=== PATIENT | female | born 1965 | race Two or more races ===

== ENCOUNTER 2021-07-02 06:10 | Emergency (ER) | payer MEDICAID ==
[2021-07-02 07:16] LABS: Hematocrit 38.1 % (36.0-46.0); Hemoglobin 13.3 g/dL (12.2-16.2); Mean Corpuscular Hemoglobin 30.9 pg (28.0-32.0); Mean Corpuscular Volume 88.4 fL (80.0-100.0); Red Blood Cells 4.31 10^6/uL (4.0-5.20); Red Cell Distribution Width 12.1 % (11.8-14.3); White Blood Cell 16.2 10^3/uL (4.4-10.8)
[2021-07-02 07:17] LABS: Urine Bacteria FEW /hpf (None Seen); Urine Blood TRACE /uL (Negative); Urine Specific Gravity 1.015 (1.001-1.035); Urine WBC 9 /hpf (0 - 5)
[2021-07-02 07:20] LABS: Basophils % (manual) 0 (0.0-2.0); Blast Cells 0; Eosinophils % (manual) 0 (0-7); Metamyelocytes % 0; Myelocytes % 0; Promyelocytes % 0; Reactive Lymphocytes 0
[2021-07-02] MEDS ORDERED: ACETAMINOPHEN 500 MG TAB PO ONE (07:30)
[2021-07-02 07:33] LABS: Potassium 3.6 mmol/L (3.5-5.1)
[2021-07-02 07:41] LABS: Albumin 3.2 g/dL (3.4-5.0); Bilirubin, Total 0.7 mg/dL (0.2-1.0); Calcium 8.8 mg/dL (8.5-10.1); Total Protein 7.8 g/dL (6.4-8.2)
[2021-07-02] MEDS ORDERED: InsuLIN REG 1unit/0.01ml Soln (100units/ml) IV ONE (08:00)
[2021-07-02] MEDS ORDERED: SODIUM CHLORIDE 0.9% 1,000 ML IV ONE ×2 (08:00)
[2021-07-02] MEDS ORDERED: cefTRIAXone 1GM/50ML D5W 50 ML IV ONE (08:00)
[2021-07-02 08:18] LABS: Band Neutrophils % (manual) 5; Lymphocytes % (manual) 3 (10.0-50.0); Monocytes % (manual) 2 (0-12)
[2021-07-02 10:50] VITALS: BP 110/58
== END 2021-07-02 11:15 | disposition home or self-care (01) ==
LOC: EDBD → ER 06:10
DX: N12 Tubulo-interstitial nephritis, not specified as acute or chronic (principal); E46 Unspecified protein-calorie malnutrition; E11.65 Type 2 diabetes mellitus with hyperglycemia; Z90.89 Acquired absence of other organs; Z20.822 Contact with and (suspected) exposure to COVID-19
CPT/HCPCS: 36415; 71045; 80053; 81001; 82150; 82728; 83690; 84702; 85007; 85027; 86141; 87426

== ENCOUNTER 2021-07-05 17:11 | Inpatient (IN) | payer MEDICAID ==
[~2021-07-05] VITALS: Ht 154.9 cm; Wt 63.6 kg
[2021-07-05] MEDS ORDERED: ONDANSETRON ODT 4 MG TAB PO ONE (18:30)
[2021-07-05 18:55] LABS: Basophils # (auto) 0.1 10 ^3/uL (0-0.2); Basophils % (auto) 0.6 % (0.0-2.0); Eosinophils # (auto) 0 10 ^3/uL (0-0.8); Eosinophils % (auto) 0.1 % (0.0-7.0); Hematocrit 42.4 % (36.0-46.0); Hemoglobin 14.5 g/dL (12.2-16.2); Lymphocytes # (auto) 1.5 10 ^3/uL (0.4-5.4); Lymphocytes % (auto) 9.3 % (10.0-50.0); Mean Corpuscular Hemoglobin 30.2 pg (28.0-32.0); Mean Corpuscular Hgb Conc. 34.2 g/dL (32.0-36.0); Mean Corpuscular Volume 88.2 fL (80.0-100.0); Monocytes # (auto) 1.1 10 ^3/uL (0-1.3); Monocytes % (auto) 6.9 % (0.0-12.0); Neutrophils # (auto) 13.1 10 ^3/uL (1.6-8.6); Neutrophils % (auto) 83.1 % (37.0-80.0); Red Blood Cells 4.81 10^6/uL (4.0-5.20); Red Cell Distribution Width 12.4 % (11.8-14.3); White Blood Cell 15.7 10^3/uL (4.4-10.8)
[2021-07-05 19:12] LABS: Albumin 2.6 g/dL (3.4-5.0); BUN/Creatinine Ratio 32.9; Calcium 8.6 mg/dL (8.5-10.1); Potassium 3.4 mmol/L (3.5-5.1)
[2021-07-05 19:14] LABS: Bilirubin, Total 0.7 mg/dL (0.2-1.0); Total Protein 8.2 g/dL (6.4-8.2)
[2021-07-06] MEDS ORDERED: ALBUMIN 25% 50 ML IV ONE (03:30)
[2021-07-06] MEDS ORDERED: NITROGLYCERIN 0.4 MG SL TAB SL PRN (03:30)
[2021-07-06] MEDS ORDERED: ACETAMINOPHEN 325 MG TAB PO PRN (03:30)
[2021-07-06] MEDS ORDERED: HYDROcodone-ACET 5/325MG TAB PO PRN (03:30)
[2021-07-06] MEDS ORDERED: MORPHINE SULFATE INJECTION 2 MG/ML SYRG IV PRN (03:30)
[2021-07-06] MEDS ORDERED: POTASSIUM CHL 20 Meq TABLET PO ONE (03:30)
[2021-07-06] MEDS ORDERED: DEXTROSE (50%) 50ML SYRG IV PRN (03:30)
[2021-07-06 04:06] LABS: Urine Bacteria FEW /hpf (None Seen); Urine Blood 2+ /uL (Negative); Urine Hyaline Cast FEW /lpf (0 - 2); Urine Mucus FEW (None Seen); Urine Specific Gravity 1.027 (1.001-1.035); Urine WBC 4 /hpf (0 - 5)
[2021-07-06] MEDS: SODIUM CHLORIDE 0.9% 1,000 ML IV SCH ×2 (06:00→21:07)
[2021-07-06] MEDS: ACCU-CHEK COMFORT CURVE STRIP VI SCH ×4 (07:55→21:06)
[2021-07-06] MEDS: InsuLIN REG 1unit/0.01ml Soln (100units/ml) SC SCH ×4 (07:56→21:06)
[2021-07-06] MEDS: metFORMIN HYDROCHLORIDE 500 MG TAB PO SCH ×2 (08:00→17:52)
[2021-07-06] MEDS: cefTRIAXone 1GM/50ML D5W 50 ML IV SCH (09:15)
[2021-07-06] MEDS: FAMOTIDINE (10MG/ML) 2ML VL IV SCH (09:35)
[2021-07-06 13:00] VITALS: BP 121/81
[2021-07-06 13:15] VITALS: BP 121/81
[2021-07-06] MEDS ORDERED: LACTULOSE 20Gm/30ML SOLN PO PRN (16:15)
[2021-07-06 16:46] VITALS: BP 133/70
[2021-07-06] MEDS: ONDANSETRON HCL 4 MG/2 ML VIAL IV PRN (17:05)
[2021-07-06] MEDS: glipiZIDE 5 MG TAB PO SCH (17:30)
[2021-07-06] MEDS: METOCLOPRAMIDE HCL 10 MG TAB PO SCH ×2 (17:52→21:04)
[2021-07-06] MEDS: Glucerna Carbsteady SHAKE Vanilla 8oz PO SCH (17:53)
[2021-07-06 22:00] VITALS: BP 125/77
[2021-07-07 05:00] VITALS: BP 121/82
[2021-07-07] MEDS: METOCLOPRAMIDE HCL 10 MG TAB PO SCH ×4 (05:40→21:01)
[2021-07-07] MEDS: glipiZIDE 5 MG TAB PO SCH ×2 (05:40→18:00)
[2021-07-07] MEDS: ACCU-CHEK COMFORT CURVE STRIP VI SCH ×4 (05:41→21:01)
[2021-07-07] MEDS: InsuLIN REG 1unit/0.01ml Soln (100units/ml) SC SCH ×4 (05:41→20:46)
[2021-07-07 06:39] LABS: Basophils # (auto) 0 10 ^3/uL (0-0.2); Basophils % (auto) 0.1 % (0.0-2.0); Eosinophils # (auto) 0 10 ^3/uL (0-0.8); Eosinophils % (auto) 0.1 % (0.0-7.0); Hematocrit 42.9 % (36.0-46.0); Hemoglobin 14.5 g/dL (12.2-16.2); Lymphocytes # (auto) 2.3 10 ^3/uL (0.4-5.4); Lymphocytes % (auto) 13.9 % (10.0-50.0); Mean Corpuscular Hemoglobin 30.2 pg (28.0-32.0); Mean Corpuscular Hgb Conc. 33.7 g/dL (32.0-36.0); Mean Corpuscular Volume 89.4 fL (80.0-100.0); Monocytes # (auto) 1.4 10 ^3/uL (0-1.3); Monocytes % (auto) 8.1 % (0.0-12.0); Neutrophils # (auto) 13.2 10 ^3/uL (1.6-8.6); Neutrophils % (auto) 77.8 % (37.0-80.0); Red Cell Distribution Width 12.3 % (11.8-14.3); White Blood Cell 16.9 10^3/uL (4.4-10.8)
[2021-07-07 06:51] LABS: Potassium 3.2 mmol/L (3.5-5.1)
[2021-07-07 06:57] LABS: Albumin 2.8 g/dL (3.4-5.0); BUN/Creatinine Ratio 31.9; Bilirubin, Total 0.5 mg/dL (0.2-1.0); Calcium 8.8 mg/dL (8.5-10.1); Total Protein 7.8 g/dL (6.4-8.2)
[2021-07-07] MEDS: metFORMIN HYDROCHLORIDE 500 MG TAB PO SCH ×2 (08:29→18:00)
[2021-07-07] MEDS: cefTRIAXone 1GM/50ML D5W 50 ML IV SCH (08:34)
[2021-07-07] MEDS: FAMOTIDINE (10MG/ML) 2ML VL IV SCH (08:34)
[2021-07-07] MEDS: Glucerna Carbsteady SHAKE Vanilla 8oz PO SCH ×3 (08:34→18:00)
[2021-07-07] MEDS: ONDANSETRON HCL 4 MG/2 ML VIAL IV PRN ×2 (08:39→17:07)
[2021-07-07 09:00] VITALS: BP 135/86
[2021-07-07] MEDS: SODIUM CHLORIDE 0.9% 1,000 ML IV SCH (12:50)
[2021-07-07 13:00] VITALS: BP 140/82
[2021-07-07] MEDS ORDERED: PANTOPRAZOLE 40 MG TAB PO ONE (13:00)
[2021-07-07] MEDS ORDERED: POTASSIUM CHL 10 Meq TABLET PO ONE (13:00)
[2021-07-07] MEDS ORDERED: LORazepam 0.5 MG TAB PO PRN (13:00)
[2021-07-07 17:00] VITALS: BP 134/74
[2021-07-07] MEDS: SUCRALFATE 1 GM/10 ML ORAL SUSP PO SCH ×2 (17:00→21:06)
[2021-07-07] MEDS: PANTOPRAZOLE 40 MG TAB PO SCH (21:01)
[2021-07-07 22:00] VITALS: BP 128/79
[2021-07-07] MEDS: METOCLOPRAMIDE HCL 5MG/ml INJ 2ml VIAL IV SCH (22:02)
[2021-07-08 05:00] VITALS: BP 124/79
[2021-07-08 05:04] LABS: Hematocrit 38.3 % (36.0-46.0); Hemoglobin 12.7 g/dL (12.2-16.2); Mean Corpuscular Hemoglobin 29.6 pg (28.0-32.0); Mean Corpuscular Hgb Conc. 33.2 g/dL (32.0-36.0); Mean Corpuscular Volume 89.2 fL (80.0-100.0); Red Blood Cells 4.29 10^6/uL (4.0-5.20); Red Cell Distribution Width 12.2 % (11.8-14.3); White Blood Cell 12.6 10^3/uL (4.4-10.8)
[2021-07-08] MEDS: METOCLOPRAMIDE HCL 5MG/ml INJ 2ml VIAL IV SCH ×3 (05:16→21:02)
[2021-07-08] MEDS: SODIUM CHLORIDE 0.9% 1,000 ML IV SCH ×2 (05:16→21:03)
[2021-07-08] MEDS: ACCU-CHEK COMFORT CURVE STRIP VI SCH ×4 (05:17→21:03)
[2021-07-08] MEDS: InsuLIN REG 1unit/0.01ml Soln (100units/ml) SC SCH ×4 (05:17→21:01)
[2021-07-08] MEDS: glipiZIDE 5 MG TAB PO SCH ×2 (05:17→17:18)
[2021-07-08] MEDS: METOCLOPRAMIDE HCL 10 MG TAB PO SCH (05:17)
[2021-07-08 05:31] LABS: Albumin 2.2 g/dL (3.4-5.0); BUN/Creatinine Ratio 31.5; Calcium 8.2 mg/dL (8.5-10.1); Potassium 3.2 mmol/L (3.5-5.1)
[2021-07-08 05:33] LABS: Basophils % (manual) 0 (0.0-2.0); Blast Cells 0; Eosinophils % (manual) 0 (0-7); Promyelocytes % 0; Reactive Lymphocytes 0
[2021-07-08 05:40] LABS: Bilirubin, Total 0.4 mg/dL (0.2-1.0); Total Protein 6.6 g/dL (6.4-8.2)
[2021-07-08 07:32] LABS: Band Neutrophils % (manual) 7; Lymphocytes % (manual) 12 (10.0-50.0); Metamyelocytes % 1; Monocytes % (manual) 8 (0-12); Myelocytes % 1
[2021-07-08] MEDS: metFORMIN HYDROCHLORIDE 500 MG TAB PO SCH ×2 (08:00→17:18)
[2021-07-08] MEDS: Glucerna Carbsteady SHAKE Vanilla 8oz PO SCH ×3 (08:00→18:00)
[2021-07-08] MEDS: cefTRIAXone 1GM/50ML D5W 50 ML IV SCH (08:33)
[2021-07-08] MEDS: SUCRALFATE 1 GM/10 ML ORAL SUSP PO SCH ×4 (09:00→21:02)
[2021-07-08] MEDS: FAMOTIDINE (10MG/ML) 2ML VL IV SCH (09:19)
[2021-07-08] MEDS: PANTOPRAZOLE 40 MG TAB PO SCH ×2 (09:19→21:02)
[2021-07-08] MEDS ORDERED: POTASSIUM CHL 10 Meq TABLET PO ONE (13:00)
[2021-07-08 15:33] LABS: INR 1.04 (0.9-1.15)
[2021-07-08 22:53] VITALS: BP 125/76
[2021-07-09 05:37] LABS: Hematocrit 35.7 % (36.0-46.0); Hemoglobin 11.9 g/dL (12.2-16.2); Mean Corpuscular Hemoglobin 29.7 pg (28.0-32.0); Mean Corpuscular Hgb Conc. 33.2 g/dL (32.0-36.0); Mean Corpuscular Volume 89.5 fL (80.0-100.0); Red Blood Cells 3.99 10^6/uL (4.0-5.20); Red Cell Distribution Width 12.1 % (11.8-14.3); White Blood Cell 12.2 10^3/uL (4.4-10.8)
[2021-07-09] MEDS: METOCLOPRAMIDE HCL 5MG/ml INJ 2ml VIAL IV SCH ×4 (05:47→22:14)
[2021-07-09] MEDS: SUCRALFATE 1 GM/10 ML ORAL SUSP PO SCH ×4 (05:47→22:14)
[2021-07-09] MEDS: glipiZIDE 5 MG TAB PO SCH (05:54)
[2021-07-09] MEDS: InsuLIN REG 1unit/0.01ml Soln (100units/ml) SC SCH ×4 (05:57→22:33)
[2021-07-09] MEDS: ACCU-CHEK COMFORT CURVE STRIP VI SCH ×4 (05:57→22:14)
[2021-07-09 06:02] VITALS: BP 138/80
[2021-07-09 06:15] LABS: Basophils % (manual) 0 (0.0-2.0); Blast Cells 0; Eosinophils % (manual) 0 (0-7); Myelocytes % 0; Promyelocytes % 0
[2021-07-09 07:09] LABS: BUN/Creatinine Ratio 16.7; Calcium 7.9 mg/dL (8.5-10.1)
[2021-07-09 07:20] LABS: Bilirubin, Total 0.4 mg/dL (0.2-1.0); Total Protein 6.1 g/dL (6.4-8.2)
[2021-07-09] MEDS: metFORMIN HYDROCHLORIDE 500 MG TAB PO SCH (07:51)
[2021-07-09] MEDS: Glucerna Carbsteady SHAKE Vanilla 8oz PO SCH ×3 (07:51→18:00)
[2021-07-09 08:07] LABS: Band Neutrophils % (manual) 1; Lymphocytes % (manual) 10 (10.0-50.0); Metamyelocytes % 2; Monocytes % (manual) 4 (0-12); Reactive Lymphocytes 1
[2021-07-09] MEDS ORDERED: LIDOCAINE VISCOUS 2% 15ML UD ONE (08:29)
[2021-07-09] MEDS ORDERED: SODIUM CHLORIDE LOCK 10 ML ONE (08:29)
[2021-07-09] MEDS ORDERED: diphenhdrAMINE HCL 50 MG/1 ML VL ONE (08:30)
[2021-07-09] MEDS ORDERED: MIDAZOLAM HCL 5 MG/ML-1ML VIAL ONE (08:30)
[2021-07-09] MEDS ORDERED: fentaNYL CITRATE 100 MCG/2 ML VL ONE (08:30)
[2021-07-09 09:00] VITALS: BP 113/74
[2021-07-09] MEDS: FAMOTIDINE (10MG/ML) 2ML VL IV SCH (09:28)
[2021-07-09] MEDS: PANTOPRAZOLE 40 MG TAB PO SCH ×2 (09:28→22:14)
[2021-07-09] MEDS: ONDANSETRON HCL 4 MG/2 ML VIAL IV PRN (09:35)
[2021-07-09] MEDS: SODIUM CHLORIDE 0.9% 1,000 ML IV SCH (14:06)
[2021-07-09] MEDS ORDERED: POTASSIUM CHLORIDE 40 MEQ, LIDOCAINE 1% (LOCAL ANESTH.) 4 ML in SODIUM CHL 0.9% 250 ML IV ONE (14:15)
[2021-07-09 17:00] VITALS: BP 121/61
[2021-07-09] MEDS: NYSTATIN (MOUTH-THROAT) 500,000 UNITS/5 ML SUSP MT SCH ×2 (18:00→22:14)
[2021-07-09 22:00] VITALS: BP 136/84
[2021-07-10 05:00] VITALS: BP 134/82
[2021-07-10 05:53] LABS: Hematocrit 35.5 % (36.0-46.0); Hemoglobin 12.3 g/dL (12.2-16.2); Mean Corpuscular Hemoglobin 30.6 pg (28.0-32.0); Mean Corpuscular Hgb Conc. 34.6 g/dL (32.0-36.0); Mean Corpuscular Volume 88.7 fL (80.0-100.0); Red Blood Cells 4.01 10^6/uL (4.0-5.20); Red Cell Distribution Width 12.2 % (11.8-14.3)
[2021-07-10 06:22] LABS: Basophils % (manual) 0 (0.0-2.0); Blast Cells 0; Metamyelocytes % 0; Myelocytes % 0; Promyelocytes % 0; Reactive Lymphocytes 0
[2021-07-10 06:34] LABS: Calcium 7.6 mg/dL (8.5-10.1)
[2021-07-10] MEDS: METOCLOPRAMIDE HCL 5MG/ml INJ 2ml VIAL IV SCH ×3 (06:35→21:47)
[2021-07-10] MEDS: NYSTATIN (MOUTH-THROAT) 500,000 UNITS/5 ML SUSP MT SCH ×4 (06:35→21:47)
[2021-07-10] MEDS: SUCRALFATE 1 GM/10 ML ORAL SUSP PO SCH ×4 (06:35→21:48)
[2021-07-10] MEDS: ACCU-CHEK COMFORT CURVE STRIP VI SCH ×4 (06:35→21:41)
[2021-07-10] MEDS: InsuLIN REG 1unit/0.01ml Soln (100units/ml) SC SCH ×4 (06:53→21:46)
[2021-07-10] MEDS: Glucerna Carbsteady SHAKE Vanilla 8oz PO SCH ×3 (08:00→17:16)
[2021-07-10 08:22] LABS: Band Neutrophils % (manual) 3; Eosinophils % (manual) 2 (0-7); Lymphocytes % (manual) 16 (10.0-50.0); Monocytes % (manual) 3 (0-12)
[2021-07-10 08:42] LABS: Potassium 2.8 mmol/L (3.5-5.1)
[2021-07-10] MEDS ORDERED: POTASSIUM CHLORIDE 40 MEQ, LIDOCAINE 1% (LOCAL ANESTH.) 4 ML in SODIUM CHL 0.9% 250 ML IV ONE (09:15)
[2021-07-10] MEDS ORDERED: POTASSIUM CHLORIDE 20 MEQ, LIDOCAINE 1% (LOCAL ANESTH.) 2 ML in SODIUM CHL 0.9% 100 ML IV ONE (09:15)
[2021-07-10] MEDS: PANTOPRAZOLE 40 MG TAB PO SCH ×2 (09:24→21:48)
[2021-07-10] MEDS ORDERED: SODIUM CHL 0.9% IV ONE (09:30)
[2021-07-10] MEDS ORDERED: POTASSIUM CHL IV ONE (09:30)
[2021-07-10] MEDS ORDERED: LIDOCAINE 1% IV ONE (09:30)
[2021-07-10] MEDS ORDERED: PANTOPRAZOLE 40 MG/10 ML VIAL INJ IV SCH (10:00)
[2021-07-10 22:00] VITALS: BP 135/81
[2021-07-11 05:00] VITALS: BP 151/83
[2021-07-11 05:31] LABS: Calcium 7.8 mg/dL (8.5-10.1)
[2021-07-11 05:37] LABS: Potassium 2.7 mmol/L (3.5-5.1)
[2021-07-11] MEDS: METOCLOPRAMIDE HCL 5MG/ml INJ 2ml VIAL IV SCH ×3 (06:01→22:04)
[2021-07-11] MEDS: NYSTATIN (MOUTH-THROAT) 500,000 UNITS/5 ML SUSP MT SCH ×4 (06:02→22:04)
[2021-07-11] MEDS: SUCRALFATE 1 GM/10 ML ORAL SUSP PO SCH ×4 (06:02→22:04)
[2021-07-11] MEDS: ACCU-CHEK COMFORT CURVE STRIP VI SCH ×4 (06:02→22:04)
[2021-07-11] MEDS: InsuLIN REG 1unit/0.01ml Soln (100units/ml) SC SCH ×4 (06:03→22:47)
[2021-07-11] MEDS ORDERED: POTASSIUM CHL 20 Meq TABLET PO ONE (07:00)
[2021-07-11] MEDS: PANTOPRAZOLE 40 MG TAB PO SCH ×2 (08:26→22:04)
[2021-07-11] MEDS: Glucerna Carbsteady SHAKE Vanilla 8oz PO SCH ×3 (08:26→17:48)
[2021-07-11 09:00] VITALS: BP 136/83
[2021-07-11 11:04] LABS: Phosphorus 2.2 mg/dL (2.5-4.90)
[2021-07-11 13:00] VITALS: BP 146/84
[2021-07-11] MEDS ORDERED: POTASSIUM PHOSPHATE 22 MEQ in SODIUM CHL 0.9% 100 ML IV ONE (15:00)
[2021-07-11 17:00] VITALS: BP 122/68
[2021-07-11 22:00] VITALS: BP 119/77
[2021-07-12 05:00] VITALS: BP 111/63
[2021-07-12] MEDS: NYSTATIN (MOUTH-THROAT) 500,000 UNITS/5 ML SUSP MT SCH ×4 (06:19→22:25)
[2021-07-12] MEDS: SUCRALFATE 1 GM/10 ML ORAL SUSP PO SCH ×4 (06:19→22:25)
[2021-07-12] MEDS: METOCLOPRAMIDE HCL 5MG/ml INJ 2ml VIAL IV SCH (06:19)
[2021-07-12] MEDS: ACCU-CHEK COMFORT CURVE STRIP VI SCH ×4 (06:20→22:45)
[2021-07-12] MEDS: InsuLIN REG 1unit/0.01ml Soln (100units/ml) SC SCH ×4 (06:41→22:46)
[2021-07-12 06:42] LABS: BUN/Creatinine Ratio 15.8; Calcium 7.8 mg/dL (8.5-10.1)
[2021-07-12 08:00] VITALS: BP 94/57
[2021-07-12] MEDS: Glucerna Carbsteady SHAKE Vanilla 8oz PO SCH ×3 (08:00→17:07)
[2021-07-12 12:00] VITALS: BP 133/87
[2021-07-12] MEDS ORDERED: POTASSIUM EFFERVESENT TAB 25 MEQ PO ONE (12:15)
[2021-07-12] MEDS ORDERED: POTASSIUM CHL 20 Meq TABLET PO ONE (12:15)
[2021-07-12] MEDS: PANTOPRAZOLE 40 MG TAB PO SCH ×2 (12:43→22:25)
[2021-07-12] MEDS ORDERED: AMOXICILLIN TRIHYDRATE 250 MG CAP PO SCH (14:00)
[2021-07-12] MEDS ORDERED: ACYCLOVIR 400 MG TAB PO SCH (14:00)
[2021-07-12] MEDS: SODIUM CHLORIDE 0.9% 1,000 ML IV SCH ×2 (14:15→22:25)
[2021-07-12] MEDS: ACYCLOVIR SOD 50MG/ML 500 MG in D5W 5% 100 ML IV SCH ×2 (15:38→23:35)
[2021-07-12] MEDS: AMOXICILLIN TRIHYDRATE 250 MG CAP PO SCH (15:39)
[2021-07-12 16:00] VITALS: BP 136/71
[2021-07-12] MEDS ORDERED: CLARITHROMYCIN 500 MG TAB PO SCH (17:00)
[2021-07-12] MEDS: POTASSIUM CHL 20MEQ/100ML 100 ML IV SCH ×2 (17:29→19:56)
[2021-07-12 22:00] VITALS: BP 128/76
[2021-07-13] MEDS ORDERED: CLARITHROMYCIN 500 MG TAB PO SCH (04:00)
[2021-07-13] MEDS: AMOXICILLIN TRIHYDRATE 250 MG CAP PO SCH ×2 (04:54→17:56)
[2021-07-13] MEDS: NYSTATIN (MOUTH-THROAT) 500,000 UNITS/5 ML SUSP MT SCH ×4 (04:54→23:06)
[2021-07-13 05:01] VITALS: BP 117/78
[2021-07-13 05:43] LABS: Potassium 3.8 mmol/L (3.5-5.1)
[2021-07-13] MEDS: SUCRALFATE 1 GM/10 ML ORAL SUSP PO SCH ×4 (06:49→23:01)
[2021-07-13] MEDS: CLARITHROMYCIN 500 MG TAB PO SCH ×2 (06:49→19:30)
[2021-07-13] MEDS: InsuLIN REG 1unit/0.01ml Soln (100units/ml) SC SCH ×4 (06:53→22:00)
[2021-07-13] MEDS: ACCU-CHEK COMFORT CURVE STRIP VI SCH ×4 (06:53→22:00)
[2021-07-13] MEDS: ACYCLOVIR SOD 50MG/ML 500 MG in D5W 5% 100 ML IV SCH ×2 (08:32→16:26)
[2021-07-13] MEDS: Glucerna Carbsteady SHAKE Vanilla 8oz PO SCH ×3 (08:33→17:56)
[2021-07-13 09:00] VITALS: BP 123/77
[2021-07-13] MEDS: PANTOPRAZOLE 40 MG TAB PO SCH ×2 (09:46→23:01)
[2021-07-13] MEDS ORDERED: AZITHROMYCIN 250 MG TAB PO SCH (10:00)
[2021-07-13 13:00] VITALS: BP 113/71
[2021-07-13 17:00] VITALS: BP 117/77
[2021-07-13] MEDS: SODIUM CHLORIDE 0.9% 1,000 ML IV SCH (17:55)
[2021-07-13 22:00] VITALS: BP 117/78
[2021-07-14] MEDS: ACYCLOVIR SOD 50MG/ML 500 MG in D5W 5% 100 ML IV SCH ×4 (00:45→23:20)
[2021-07-14] MEDS: NYSTATIN (MOUTH-THROAT) 500,000 UNITS/5 ML SUSP MT SCH ×4 (05:36→21:05)
[2021-07-14] MEDS: AMOXICILLIN TRIHYDRATE 250 MG CAP PO SCH ×2 (05:36→16:54)
[2021-07-14 05:39] VITALS: BP 108/64
[2021-07-14] MEDS: SODIUM CHLORIDE 0.9% 1,000 ML IV SCH ×2 (06:15→21:56)
[2021-07-14] MEDS: InsuLIN REG 1unit/0.01ml Soln (100units/ml) SC SCH ×4 (07:12→21:39)
[2021-07-14] MEDS: ACCU-CHEK COMFORT CURVE STRIP VI SCH ×4 (07:17→21:38)
[2021-07-14] MEDS: SUCRALFATE 1 GM/10 ML ORAL SUSP PO SCH ×4 (08:18→21:04)
[2021-07-14] MEDS: Glucerna Carbsteady SHAKE Vanilla 8oz PO SCH ×3 (08:19→16:55)
[2021-07-14] MEDS: CLARITHROMYCIN 500 MG TAB PO SCH ×2 (08:19→19:09)
[2021-07-14] MEDS: PANTOPRAZOLE 40 MG TAB PO SCH ×2 (11:42→21:05)
[2021-07-14 16:46] VITALS: BP 117/73
[2021-07-14 22:00] VITALS: BP 121/79
[2021-07-15 05:00] VITALS: BP 111/69
[2021-07-15] MEDS: NYSTATIN (MOUTH-THROAT) 500,000 UNITS/5 ML SUSP MT SCH ×2 (05:01→11:50)
[2021-07-15] MEDS: AMOXICILLIN TRIHYDRATE 250 MG CAP PO SCH (05:01)
[2021-07-15 05:43] LABS: Basophils # (auto) 0 10 ^3/uL (0-0.2); Basophils % (auto) 0.8 % (0.0-2.0); Eosinophils # (auto) 0.1 10 ^3/uL (0-0.8); Eosinophils % (auto) 1.5 % (0.0-7.0); Hematocrit 34.2 % (36.0-46.0); Hemoglobin 11.8 g/dL (12.2-16.2); Lymphocytes # (auto) 2.2 10 ^3/uL (0.4-5.4); Lymphocytes % (auto) 36.3 % (10.0-50.0); Mean Corpuscular Hemoglobin 30.5 pg (28.0-32.0); Mean Corpuscular Hgb Conc. 34.4 g/dL (32.0-36.0); Mean Corpuscular Volume 88.6 fL (80.0-100.0); Monocytes # (auto) 0.6 10 ^3/uL (0-1.3); Monocytes % (auto) 10.5 % (0.0-12.0); Neutrophils # (auto) 3.1 10 ^3/uL (1.6-8.6); Neutrophils % (auto) 50.9 % (37.0-80.0); Nucleated Red Blood Cells % 0.1 %; Red Blood Cells 3.86 10^6/uL (4.0-5.20); Red Cell Distribution Width 12.4 % (11.8-14.3); White Blood Cell 6.1 10^3/uL (4.4-10.8)
[2021-07-15 05:52] LABS: Potassium 3.6 mmol/L (3.5-5.1)
[2021-07-15 05:58] LABS: Albumin 2.3 g/dL (3.4-5.0); Calcium 8.7 mg/dL (8.5-10.1)
[2021-07-15] MEDS: CLARITHROMYCIN 500 MG TAB PO SCH (06:09)
[2021-07-15] MEDS: SUCRALFATE 1 GM/10 ML ORAL SUSP PO SCH ×2 (06:09→11:50)
[2021-07-15] MEDS: ACCU-CHEK COMFORT CURVE STRIP VI SCH ×2 (06:13→11:50)
[2021-07-15] MEDS: InsuLIN REG 1unit/0.01ml Soln (100units/ml) SC SCH ×2 (06:22→11:51)
[2021-07-15 06:29] LABS: Bilirubin, Total 0.2 mg/dL (0.2-1.0); Total Protein 6.5 g/dL (6.4-8.2)
[2021-07-15] MEDS: ACYCLOVIR SOD 50MG/ML 500 MG in D5W 5% 100 ML IV SCH (07:40)
[2021-07-15] MEDS: Glucerna Carbsteady SHAKE Vanilla 8oz PO SCH ×2 (07:42→11:50)
[2021-07-15 08:00] VITALS: BP 104/72
[2021-07-15] MEDS: PANTOPRAZOLE 40 MG TAB PO SCH (10:24)
[2021-07-15 13:11] VITALS: BP 113/73
[2021-07-15 13:37] LABS: Hepatitis A Ab IgM Negative; Hepatitis B Core IgM Negative; Hepatitis B Surface Antigen Negative (Negative); Hepatitis C Antibody Negative (Negative)
[2021-07-15 17:00] VITALS: BP 114/66
[2021-07-15 17:09] VITALS: BP 113/73
== END 2021-07-15 17:46 | disposition home or self-care (01) | DRG 243 ==
LOC: ER 17:11 → TELE 07-06 03:27 → EDBD 07-06 03:27 → TELE-WESTW 07-06 13:24
PROVIDERS: ADMIT Nurse Practitioner Family; ATTEND Internal Medicine
PROC: 0DB68ZX Excision of Stomach, Via Natural or Artificial Opening Endoscopic, Diagnostic (ICD-10-PCS; 2021-07-09)
PROC: 0DB58ZX Excision of Esophagus, Via Natural or Artificial Opening Endoscopic, Diagnostic (ICD-10-PCS; 2021-07-09)
PROC: 0DB98ZX Excision of Duodenum, Via Natural or Artificial Opening Endoscopic, Diagnostic (ICD-10-PCS; principal; 2021-07-09 11:47)
DX: K22.10 Ulcer of esophagus without bleeding (principal); B37.81 Candidal esophagitis; E44.0 Moderate protein-calorie malnutrition; K76.0 Fatty (change of) liver, not elsewhere classified; E87.1 Hypo-osmolality and hyponatremia; E88.09 Other disorders of plasma-protein metabolism, not elsewhere classified; B00.89 Other herpesviral infection; N12 Tubulo-interstitial nephritis, not specified as acute or chronic; E11.65 Type 2 diabetes mellitus with hyperglycemia; E86.0 Dehydration; E87.6 Hypokalemia; K59.00 Constipation, unspecified; K21.00 Gastro-esophageal reflux disease with esophagitis, without bleeding; K44.9 Diaphragmatic hernia without obstruction or gangrene; Z20.822 Contact with and (suspected) exposure to COVID-19; B96.81 Helicobacter pylori [H. pylori] as the cause of diseases classified elsewhere; K29.80 Duodenitis without bleeding; Z83.3 Family history of diabetes mellitus; Z90.49 Acquired absence of other specified parts of digestive tract; Z68.24 Body mass index [BMI] 24.0-24.9, adult
CPT/HCPCS: 36415; 43239; 71045; 74176; 80048; 80053; 80074; 81001; 82150; 82962; 83036; 83690; 83735; 84100; 84132; 84443; 85007; 85025; 85027; 85610; 86703; 87081; 87426; 93005; 96365; G0378; J0696; J1815; J2001; J2250; J2405; J3480; J3490; J7060; Q0162

== ENCOUNTER 2022-07-31 10:17 | Inpatient (IN) | payer MEDICAID ==
[~2022-07-31] VITALS: Ht 152.4 cm; Wt 64.0 kg
[2022-07-31] MEDS ORDERED: SODIUM CHLORIDE 0.9% 1,000 ML IV ONE ×2 (10:45)
[2022-07-31 11:24] LABS: Eosinophils # (auto) 0 10 ^3/uL (0-0.8); Eosinophils % (auto) 0.3 % (0.0-7.0); Hemoglobin 12.8 g/dL (12.2-16.2); Nucleated Red Blood Cells % 0.1 %; Red Blood Cells 4.68 10^6/uL (4.0-5.20); Red Cell Distribution Width 14.2 % (11.8-14.3)
[2022-07-31 11:36] LABS: Basophils # (auto) 0 10 ^3/uL (0-0.2); Basophils % (auto) 0.4 % (0.0-2.0); Hematocrit 39.2 % (36.0-46.0); Lymphocytes # (auto) 1.4 10 ^3/uL (0.4-5.4); Lymphocytes % (auto) 12.6 % (10.0-50.0); Mean Corpuscular Hemoglobin 27.3 pg (28.0-32.0); Mean Corpuscular Hgb Conc. 32.6 g/dL (32.0-36.0); Mean Corpuscular Volume 83.9 fL (80.0-100.0); Monocytes # (auto) 0.4 10 ^3/uL (0-1.3); Monocytes % (auto) 3.5 % (0.0-12.0); Neutrophils # (auto) 9.2 10 ^3/uL (1.6-8.6); Neutrophils % (auto) 83.2 % (37.0-80.0)
[2022-07-31 11:41] LABS: Albumin 3.5 g/dL (3.4-5.0); Calcium 9.1 mg/dL (8.5-10.1); Potassium 4.2 mmol/L (3.5-5.1)
[2022-07-31 11:44] LABS: BUN/Creatinine Ratio 10.9; Bilirubin, Total 0.5 mg/dL (0.2-1.0); Total Protein 9.2 g/dL (6.4-8.2)
[2022-07-31] MEDS ORDERED: ONDANSETRON HCL 4 MG/2 ML VIAL IV ONE (12:15)
[2022-07-31 12:27] LABS: Lactic Acid w/Reflex 3.1 mmol/L (0.4-2.0)
[2022-07-31 12:35] LABS: Urine Bacteria NONE SEEN /hpf (None Seen); Urine Blood Negative /uL (Negative); Urine Specific Gravity 1.016 (1.001-1.035); Urine WBC 118 /hpf (0 - 5)
[2022-07-31] MEDS ORDERED: MORPHINE SULFATE INJ 2 MG/ml SYRG IV ONE (12:45)
[2022-07-31] MEDS ORDERED: cefTRIAXone 1GM/50ML D5W 50 ML IV ONE (13:30)
[2022-07-31] MEDS ORDERED: ACETAMINOPHEN 325 MG TAB PO PRN (15:30)
[2022-07-31] MEDS ORDERED: MORPHINE SULFATE INJ 2 MG/ml SYRG IV PRN ×2 (15:30)
[2022-07-31] MEDS ORDERED: SODIUM CHLORIDE 0.9% 1,750 ML IV ONE (15:30)
[2022-07-31] MEDS ORDERED: HYDROcodone-ACET 5/325MG TAB PO PRN (15:30)
[2022-07-31] MEDS ORDERED: NITROGLYCERIN 0.4 MG SL TAB SL PRN (15:30)
[2022-07-31] MEDS ORDERED: DEXTROSE (50%) 50ML SYRG IV PRN (15:30)
[2022-07-31] MEDS: SODIUM CHLORIDE 0.9% 1,000 ML IV SCH ×2 (16:41→22:20)
[2022-07-31] MEDS: PANTOPRAZOLE 40 MG/10 ML VIAL INJ IV SCH (16:41)
[2022-07-31 16:57] LABS: INR 1.02 (0.9-1.15)
[2022-07-31] MEDS: InsuLIN REG 1unit/0.01ml Soln (100units/ml) SC SCH ×2 (18:17→22:20)
[2022-07-31] MEDS: ACCU-CHEK COMFORT CURVE STRIP VI SCH ×2 (18:17→22:20)
[2022-07-31] MEDS: ONDANSETRON HCL 4 MG/2 ML VIAL IV PRN (18:34)
[2022-07-31 22:00] VITALS: BP 102/57
[2022-08-01 01:00] VITALS: BP 98/56
[2022-08-01] MEDS: SODIUM CHLORIDE 0.9% 1,000 ML IV SCH ×3 (04:58→22:09)
[2022-08-01 05:00] VITALS: BP 98/58
[2022-08-01 05:39] LABS: Basophils # (auto) 0 10 ^3/uL (0-0.2); Basophils % (auto) 0.1 % (0.0-2.0); Eosinophils # (auto) 0 10 ^3/uL (0-0.8); Hematocrit 31.7 % (36.0-46.0); Hemoglobin 10.6 g/dL (12.2-16.2); Lymphocytes # (auto) 1.2 10 ^3/uL (0.4-5.4); Lymphocytes % (auto) 5.7 % (10.0-50.0); Mean Corpuscular Hgb Conc. 33.4 g/dL (32.0-36.0); Mean Corpuscular Volume 83.7 fL (80.0-100.0); Monocytes # (auto) 1.1 10 ^3/uL (0-1.3); Monocytes % (auto) 5.3 % (0.0-12.0); Neutrophils # (auto) 18.6 10 ^3/uL (1.6-8.6); Neutrophils % (auto) 88.9 % (37.0-80.0); Red Blood Cells 3.79 10^6/uL (4.0-5.20); Red Cell Distribution Width 13.9 % (11.8-14.3)
[2022-08-01 06:14] LABS: Albumin 2.3 g/dL (3.4-5.0); Bilirubin, Total 0.3 mg/dL (0.2-1.0); Total Protein 6.2 g/dL (6.4-8.2)
[2022-08-01] MEDS: ACCU-CHEK COMFORT CURVE STRIP VI SCH ×4 (06:44→22:09)
[2022-08-01] MEDS: InsuLIN REG 1unit/0.01ml Soln (100units/ml) SC SCH ×4 (06:47→22:16)
[2022-08-01 09:00] VITALS: BP 100/50
[2022-08-01] MEDS ORDERED: cefTRIAXone 1GM/50ML D5W 50 ML IV SCH (09:00)
[2022-08-01] MEDS: ENOXAPARIN SOD 40 MG/0.4 ML SYRINGE SC SCH (10:00)
[2022-08-01] MEDS: PANTOPRAZOLE 40 MG/10 ML VIAL INJ IV SCH (10:36)
[2022-08-01 13:00] VITALS: BP 102/61
[2022-08-01 17:00] VITALS: BP 108/66
[2022-08-01 22:00] VITALS: BP 105/58
[2022-08-01] MEDS: CEFEPIME 2 GM in SODIUM CHL 0.9% 50 ML IV SCH (22:09)
[2022-08-02] MEDS: SODIUM CHLORIDE 0.9% 1,000 ML IV SCH ×4 (02:00→20:50)
[2022-08-02 05:00] VITALS: BP 122/74
[2022-08-02] MEDS: CEFEPIME 2 GM in SODIUM CHL 0.9% 50 ML IV SCH (05:59)
[2022-08-02] MEDS: ACCU-CHEK COMFORT CURVE STRIP VI SCH ×4 (06:23→22:03)
[2022-08-02 06:28] LABS: Basophils # (auto) 0.1 10 ^3/uL (0-0.2); Basophils % (auto) 0.4 % (0.0-2.0); Eosinophils # (auto) 0.1 10 ^3/uL (0-0.8); Eosinophils % (auto) 0.4 % (0.0-7.0); Hematocrit 30.1 % (36.0-46.0); Hemoglobin 10.1 g/dL (12.2-16.2); Lymphocytes # (auto) 1.2 10 ^3/uL (0.4-5.4); Lymphocytes % (auto) 7.4 % (10.0-50.0); Mean Corpuscular Hemoglobin 27.9 pg (28.0-32.0); Mean Corpuscular Hgb Conc. 33.5 g/dL (32.0-36.0); Mean Corpuscular Volume 83.2 fL (80.0-100.0); Monocytes # (auto) 0.8 10 ^3/uL (0-1.3); Monocytes % (auto) 4.7 % (0.0-12.0); Neutrophils # (auto) 14.3 10 ^3/uL (1.6-8.6); Neutrophils % (auto) 87.1 % (37.0-80.0); Nucleated Red Blood Cells % 0.1 %; Red Blood Cells 3.61 10^6/uL (4.0-5.20); Red Cell Distribution Width 13.8 % (11.8-14.3); White Blood Cell 16.4 10^3/uL (4.4-10.8)
[2022-08-02 06:33] LABS: BUN/Creatinine Ratio 14.5; Calcium 6.8 mg/dL (8.5-10.1); Potassium 3.3 mmol/L (3.5-5.1)
[2022-08-02] MEDS: InsuLIN REG 1unit/0.01ml Soln (100units/ml) SC SCH ×4 (06:35→22:05)
[2022-08-02] MEDS: PANTOPRAZOLE 40 MG/10 ML VIAL INJ IV SCH (08:59)
[2022-08-02] MEDS: ENOXAPARIN SOD 40 MG/0.4 ML SYRINGE SC SCH (08:59)
[2022-08-02 09:00] VITALS: BP 117/71
[2022-08-02 13:00] VITALS: BP 127/84
[2022-08-02] MEDS: MEROPENEM 1GM IVPB 100 ML IV SCH ×2 (14:49→22:03)
[2022-08-02] MEDS: ONDANSETRON HCL 4 MG/2 ML VIAL IV PRN (14:59)
[2022-08-02 17:00] VITALS: BP 145/81
[2022-08-02 22:23] VITALS: BP 133/79
[2022-08-03] MEDS: SODIUM CHLORIDE 0.9% 1,000 ML IV SCH ×4 (02:45→22:41)
[2022-08-03] MEDS: ONDANSETRON HCL 4 MG/2 ML VIAL IV PRN (02:48)
[2022-08-03 05:00] VITALS: BP 148/76
[2022-08-03] MEDS: InsuLIN REG 1unit/0.01ml Soln (100units/ml) SC SCH ×4 (06:55→22:39)
[2022-08-03] MEDS: MEROPENEM 1GM IVPB 100 ML IV SCH ×3 (06:55→21:50)
[2022-08-03] MEDS: ACCU-CHEK COMFORT CURVE STRIP VI SCH ×4 (06:55→22:41)
[2022-08-03 09:00] VITALS: BP 122/77
[2022-08-03] MEDS: PANTOPRAZOLE 40 MG/10 ML VIAL INJ IV SCH (10:09)
[2022-08-03] MEDS: ENOXAPARIN SOD 40 MG/0.4 ML SYRINGE SC SCH (10:09)
[2022-08-03 12:59] VITALS: BP 116/70
[2022-08-03 17:00] VITALS: BP 138/87
[2022-08-03 22:00] VITALS: BP 135/72
[2022-08-04 05:00] VITALS: BP 128/77
[2022-08-04] MEDS: MEROPENEM 1GM IVPB 100 ML IV SCH ×2 (05:45→14:34)
[2022-08-04] MEDS: SODIUM CHLORIDE 0.9% 1,000 ML IV SCH ×3 (06:10→19:30)
[2022-08-04] MEDS: ACCU-CHEK COMFORT CURVE STRIP VI SCH ×3 (06:11→18:32)
[2022-08-04] MEDS: InsuLIN REG 1unit/0.01ml Soln (100units/ml) SC SCH ×3 (06:12→18:40)
[2022-08-04 09:00] VITALS: BP 124/70
[2022-08-04] MEDS: ENOXAPARIN SOD 40 MG/0.4 ML SYRINGE SC SCH (09:43)
[2022-08-04] MEDS: PANTOPRAZOLE 40 MG/10 ML VIAL INJ IV SCH (09:43)
[2022-08-04 10:42] LABS: Basophils # (auto) 0 10 ^3/uL (0-0.2); Basophils % (auto) 0.5 % (0.0-2.0); Eosinophils # (auto) 0.1 10 ^3/uL (0-0.8); Eosinophils % (auto) 1.5 % (0.0-7.0); Hematocrit 30.7 % (36.0-46.0); Hemoglobin 10.2 g/dL (12.2-16.2); Lymphocytes # (auto) 1.6 10 ^3/uL (0.4-5.4); Lymphocytes % (auto) 23.6 % (10.0-50.0); Mean Corpuscular Hemoglobin 27.3 pg (28.0-32.0); Mean Corpuscular Volume 82.5 fL (80.0-100.0); Monocytes # (auto) 0.6 10 ^3/uL (0-1.3); Monocytes % (auto) 8.3 % (0.0-12.0); Neutrophils # (auto) 4.5 10 ^3/uL (1.6-8.6); Neutrophils % (auto) 66.1 % (37.0-80.0); Nucleated Red Blood Cells % 0.2 %; Red Blood Cells 3.72 10^6/uL (4.0-5.20); Red Cell Distribution Width 13.6 % (11.8-14.3); White Blood Cell 6.8 10^3/uL (4.4-10.8)
[2022-08-04 13:00] VITALS: BP 129/75
[2022-08-04 17:00] VITALS: BP 141/77
[2022-08-04 17:25] VITALS: BP 141/77
[2022-08-04] MEDS ORDERED: ERTAPENEM SOD INJ 1 GM in SODIUM CHL 0.9% 50 ML IV ONE (20:00)
== END 2022-08-04 21:10 | disposition home health service (06) | DRG 720 ==
LOC: ER 10:17 → TELE 15:27 → TELE-CENTR 21:35 → TELE-EAST 08-02 05:52
PROVIDERS: ADMIT Internal Medicine; ATTEND Internal Medicine
PROC: 05H933Z Insertion of Infusion Device into Right Brachial Vein, Percutaneous Approach (ICD-10-PCS; principal; 2022-08-04)
PROC: B54MZZA Ultrasonography of Right Upper Extremity Veins, Guidance (ICD-10-PCS; 2022-08-04)
DX: A41.51 Sepsis due to Escherichia coli [E. coli] (principal); N13.6 Pyonephrosis; E11.65 Type 2 diabetes mellitus with hyperglycemia; I10 Essential (primary) hypertension; B96.89 Other specified bacterial agents as the cause of diseases classified elsewhere; K20.90 Esophagitis, unspecified without bleeding; Z20.822 Contact with and (suspected) exposure to COVID-19; R59.0 Localized enlarged lymph nodes; K29.70 Gastritis, unspecified, without bleeding; Z16.12 Extended spectrum beta lactamase (ESBL) resistance; Z78.9 Other specified health status; Z83.3 Family history of diabetes mellitus; Z87.442 Personal history of urinary calculi; Z90.49 Acquired absence of other specified parts of digestive tract; Z79.84 Long term (current) use of oral hypoglycemic drugs
CPT/HCPCS: 36415; 74176; 76775; 80048; 80053; 81001; 82962; 83605; 83615; 85025; 85610; 87040; 87077; 87086; 87088; 87186; 87426; 96361; 96365; 96375; C9113; G0378; J0696; J1335; J1815; J2185; J2405

== ENCOUNTER 2022-08-30 15:57 | Emergency (ER) | payer MEDICAID ==
[~2022-08-30] VITALS: Ht 154.9 cm; Wt 56.8 kg
[2022-08-30 16:32] VITALS: BP 135/82
[2022-08-30 16:47] LABS: Basophils # (auto) 0.1 10 ^3/uL (0-0.2); Basophils % (auto) 1.6 % (0.0-2.0); Eosinophils # (auto) 0.2 10 ^3/uL (0-0.8); Eosinophils % (auto) 2.3 % (0.0-7.0); Hematocrit 40.2 % (36.0-46.0); Hemoglobin 13.2 g/dL (12.2-16.2); Lymphocytes % (auto) 35.7 % (10.0-50.0); Mean Corpuscular Volume 85.1 fL (80.0-100.0); Monocytes # (auto) 0.7 10 ^3/uL (0-1.3); Monocytes % (auto) 8.1 % (0.0-12.0); Neutrophils # (auto) 4.4 10 ^3/uL (1.6-8.6); Neutrophils % (auto) 52.3 % (37.0-80.0); Nucleated Red Blood Cells % 0.1 %; Red Blood Cells 4.72 10^6/uL (4.0-5.20); Red Cell Distribution Width 14.8 % (11.8-14.3); White Blood Cell 8.4 10^3/uL (4.4-10.8)
[2022-08-30 17:02] LABS: Albumin 3.9 g/dL (3.4-5.0); Calcium 9.5 mg/dL (8.5-10.1); Potassium 4.1 mmol/L (3.5-5.1); Urine Bacteria FEW /hpf (None Seen); Urine Blood Negative /uL (Negative); Urine Specific Gravity 1.004 (1.001-1.035); Urine WBC 66 /hpf (0 - 5)
[2022-08-30 17:09] LABS: BUN/Creatinine Ratio 14.4; Bilirubin, Total 0.4 mg/dL (0.2-1.0); CRP High Sensitivity 1.87 mg/dL (< 0.3); Total Protein 8.6 g/dL (6.4-8.2)
== END 2022-08-30 23:31 | disposition left against medical advice (07) ==
LOC: ER 15:57
DX: T80.211A Bloodstream infection due to central venous catheter, initial encounter (principal); N39.0 Urinary tract infection, site not specified; E11.9 Type 2 diabetes mellitus without complications; Z53.29 Procedure and treatment not carried out because of patient's decision for other reasons; Y92.89 Other specified places as the place of occurrence of the external cause; Z90.89 Acquired absence of other organs
CPT/HCPCS: 36415; 80053; 81001; 85025; 85652; 86141

== ENCOUNTER 2022-11-06 17:13 | Inpatient (IN) | payer MEDICAID ==
[~2022-11-06] VITALS: Ht 152.4 cm; Wt 60.0 kg
[2022-11-06 17:34] VITALS: BP 121/52
[2022-11-06] MEDS ORDERED: ONDANSETRON HCL 4 MG/2 ML VIAL BC ONE (17:45)
[2022-11-06] MEDS ORDERED: SODIUM CHLORIDE 0.9% 1,000 ML IV ONE ×2 (17:45)
[2022-11-06 18:03] LABS: Basophils # (auto) 0.2 10 ^3/uL (0-0.2); Basophils % (auto) 0.9 % (0.0-2.0); Eosinophils # (auto) 0 10 ^3/uL (0-0.8); Hematocrit 35.6 % (36.0-46.0); Hemoglobin 11.5 g/dL (12.2-16.2); Lymphocytes # (auto) 0.8 10 ^3/uL (0.4-5.4); Lymphocytes % (auto) 4.1 % (10.0-50.0); Mean Corpuscular Hemoglobin 27.2 pg (28.0-32.0); Mean Corpuscular Hgb Conc. 32.3 g/dL (32.0-36.0); Mean Corpuscular Volume 84.2 fL (80.0-100.0); Monocytes # (auto) 0.9 10 ^3/uL (0-1.3); Monocytes % (auto) 4.8 % (0.0-12.0); Neutrophils # (auto) 17.3 10 ^3/uL (1.6-8.6); Neutrophils % (auto) 90.2 % (37.0-80.0); Red Blood Cells 4.23 10^6/uL (4.0-5.20); Red Cell Distribution Width 13.2 % (11.8-14.3); White Blood Cell 19.1 10^3/uL (4.4-10.8)
[2022-11-06 18:29] LABS: Albumin 2.9 g/dL (3.4-5.0); Potassium 4.6 mmol/L (3.5-5.1)
[2022-11-06] MEDS ORDERED: PIPERACILLIN-TAZOB 3.375GM 100 ML IV ONE (18:30)
[2022-11-06 18:32] LABS: BUN/Creatinine Ratio 13.3; Calcium 8.6 mg/dL (8.5-10.1); Magnesium 2.1 mg/dL (1.6-2.6)
[2022-11-06 18:34] LABS: Bilirubin, Total 0.9 mg/dL (0.2-1.0)
[2022-11-06 18:35] LABS: Lactic Acid w/Reflex 2.5 mmol/L (0.4-2.0)
[2022-11-06] MEDS ORDERED: DOCUSATE SOD 100 MG CAP PO PRN (22:00)
[2022-11-06] MEDS ORDERED: SODIUM CHLORIDE 0.9% 1,000 ML IV SCH (22:00)
[2022-11-06] MEDS ORDERED: ACETAMINOPHEN 325 MG TAB PO PRN (22:00)
[2022-11-06] MEDS ORDERED: ONDANSETRON HCL 4 MG/2 ML VIAL IV PRN (22:00)
[2022-11-06] MEDS ORDERED: PIPERACILLIN-TAZOB 3.375GM 100 ML IV SCH (22:00)
[2022-11-06] MEDS ORDERED: TEMAZEPAM 15 MG CAP PO PRN (22:00)
[2022-11-06] MEDS ORDERED: DEXTROSE (50%) 50ML SYRG IV PRN (22:00)
[2022-11-06] MEDS ORDERED: MAALOX PLUS or MAALOX 30 ML PO PRN (22:00)
[2022-11-06] MEDS ORDERED: LORazepam 0.5 MG TAB PO PRN (22:00)
[2022-11-06] MEDS ORDERED: HYDROcodone-ACET 5/325MG TAB PO PRN (22:00)
[2022-11-06] MEDS ORDERED: MORPHINE SULFATE INJ 2 MG/ml SYRG IV PRN (22:00)
[2022-11-06] MEDS ORDERED: VANCOMYCIN 1GM/250ML 250 ML IV ONE (22:00)
[2022-11-06] MEDS ORDERED: VANCOMYCIN PER PHARMACY 0 MG IV SCH (22:00)
[2022-11-06 23:02] LABS: Basophils # (auto) 0 10 ^3/uL (0-0.2); Basophils % (auto) 0.1 % (0.0-2.0); Eosinophils # (auto) 0 10 ^3/uL (0-0.8); Hematocrit 34.4 % (36.0-46.0); Hemoglobin 11.2 g/dL (12.2-16.2); Lymphocytes # (auto) 0.8 10 ^3/uL (0.4-5.4); Lymphocytes % (auto) 4.7 % (10.0-50.0); Mean Corpuscular Hemoglobin 27.3 pg (28.0-32.0); Mean Corpuscular Hgb Conc. 32.5 g/dL (32.0-36.0); Mean Corpuscular Volume 83.9 fL (80.0-100.0); Monocytes # (auto) 0.8 10 ^3/uL (0-1.3); Monocytes % (auto) 4.5 % (0.0-12.0); Neutrophils # (auto) 16.1 10 ^3/uL (1.6-8.6); Neutrophils % (auto) 90.7 % (37.0-80.0); Red Cell Distribution Width 13.2 % (11.8-14.3); White Blood Cell 17.8 10^3/uL (4.4-10.8)
[2022-11-06 23:29] LABS: BUN/Creatinine Ratio 14.9; Calcium 8.8 mg/dL (8.5-10.1); Potassium 4.5 mmol/L (3.5-5.1)
[2022-11-06 23:33] LABS: Urine Bacteria NONE SEEN /hpf (None Seen); Urine Blood 1+ /uL (Negative); Urine Specific Gravity 1.014 (1.001-1.035); Urine WBC 99 /hpf (0 - 5)
[2022-11-07] MEDS ORDERED: ACCU-CHEK COMFORT CURVE STRIP VI SCH
[2022-11-07] MEDS ORDERED: InsuLIN REG 1unit/0.01ml Soln (100units/ml) SC SCH
== END 2022-11-07 08:00 | disposition left against medical advice (07) | DRG 720 ==
LOC: ER 17:13 → TELE 22:12
PROVIDERS: ADMIT Hospitalist; ATTEND Internal Medicine
DX: A41.9 Sepsis, unspecified organism (principal); E87.1 Hypo-osmolality and hyponatremia; E11.65 Type 2 diabetes mellitus with hyperglycemia; N39.0 Urinary tract infection, site not specified; Z53.21 Procedure and treatment not carried out due to patient leaving prior to being seen by health care provider; R79.89 Other specified abnormal findings of blood chemistry; Z20.822 Contact with and (suspected) exposure to COVID-19
CPT/HCPCS: 36415; 71045; 74176; 80048; 80053; 81001; 83605; 83690; 83735; 83880; 84484; 85025; 87040; 87077; 87186; 87426; 99291; G0378

== ENCOUNTER 2023-03-24 15:12 | Emergency (ER) | payer MEDICAID ==
[~2023-03-24] VITALS: Ht 152.4 cm; Wt 61.0 kg
[2023-03-24 15:26] VITALS: BP 147/78
[2023-03-24 16:03] LABS: Urine Bacteria FEW /hpf (None Seen); Urine Blood Negative /uL (Negative); Urine Specific Gravity 1.007 (1.001-1.035); Urine WBC 1 /hpf (0 - 5)
[2023-03-24 19:39] LABS: Basophils # (auto) 0.1 10 ^3/uL (0-0.2); Basophils % (auto) 0.6 % (0.0-2.0); Eosinophils # (auto) 0.3 10 ^3/uL (0-0.8); Eosinophils % (auto) 3.6 % (0.0-7.0); Hematocrit 36.8 % (36.0-46.0); Hemoglobin 12.3 g/dL (12.2-16.2); Lymphocytes # (auto) 3.1 10 ^3/uL (0.4-5.4); Lymphocytes % (auto) 34.1 % (10.0-50.0); Mean Corpuscular Hemoglobin 29.4 pg (28.0-32.0); Mean Corpuscular Hgb Conc. 33.5 g/dL (32.0-36.0); Mean Corpuscular Volume 87.8 fL (80.0-100.0); Monocytes # (auto) 0.6 10 ^3/uL (0-1.3); Monocytes % (auto) 6.1 % (0.0-12.0); Neutrophils # (auto) 5.1 10 ^3/uL (1.6-8.6); Neutrophils % (auto) 55.6 % (37.0-80.0); Nucleated Red Blood Cells % 0.1 %; Red Blood Cells 4.18 10^6/uL (4.0-5.20); White Blood Cell 9.1 10^3/uL (4.4-10.8)
[2023-03-24 19:58] LABS: Albumin 3.6 g/dL (3.4-5.0); BUN/Creatinine Ratio 15.8 (10.0-20.0); Calcium 9.3 mg/dL (8.5-10.1); Potassium 3.6 mmol/L (3.5-5.1)
[2023-03-24 20:00] LABS: Bilirubin, Total 0.4 mg/dL (0.2-1.0); Total Protein 8.7 g/dL (6.4-8.2)
== END 2023-03-25 01:27 | disposition left against medical advice (07) ==
LOC: ER 15:12
DX: R10.9 Unspecified abdominal pain (principal); K92.1 Melena; E11.9 Type 2 diabetes mellitus without complications; Z90.49 Acquired absence of other specified parts of digestive tract
CPT/HCPCS: 36415; 74176; 80053; 81001; 81025; 83690; 85025

== ENCOUNTER 2023-05-03 22:54 | Inpatient (IN) | payer MEDICAID ==
[~2023-05-03] VITALS: Ht 154.9 cm; Wt 66.2 kg
[2023-05-04 00:46] LABS: Basophils # (auto) 0.1 10 ^3/uL (0-0.2); Basophils % (auto) 0.7 % (0.0-2.0); Eosinophils # (auto) 0 10 ^3/uL (0-0.8); Eosinophils % (auto) 0.1 % (0.0-7.0); Hematocrit 37.3 % (36.0-46.0); Hemoglobin 12.2 g/dL (12.2-16.2); Lymphocytes # (auto) 0.5 10 ^3/uL (0.4-5.4); Lymphocytes % (auto) 3.7 % (10.0-50.0); Mean Corpuscular Hemoglobin 29.2 pg (28.0-32.0); Mean Corpuscular Hgb Conc. 32.8 g/dL (32.0-36.0); Monocytes # (auto) 0.5 10 ^3/uL (0-1.3); Monocytes % (auto) 3.2 % (0.0-12.0); Neutrophils # (auto) 13.2 10 ^3/uL (1.6-8.6); Neutrophils % (auto) 92.3 % (37.0-80.0); Red Blood Cells 4.19 10^6/uL (4.0-5.20); Red Cell Distribution Width 13.2 % (11.8-14.3); White Blood Cell 14.3 10^3/uL (4.4-10.8)
[2023-05-04 01:01] LABS: Albumin 3.6 g/dL (3.4-5.0); BUN/Creatinine Ratio 13.8 (10.0-20.0); Calcium 8.5 mg/dL (8.5-10.1); Potassium 3.8 mmol/L (3.5-5.1)
[2023-05-04 01:03] LABS: Bilirubin, Total 0.5 mg/dL (0.2-1.0); Total Protein 8.1 g/dL (6.4-8.2)
[2023-05-04 01:33] LABS: Urine Bacteria NONE SEEN /hpf (None Seen); Urine Blood TRACE /uL (Negative); Urine Specific Gravity 1.017 (1.001-1.035); Urine WBC <1 /hpf (0 - 5)
[2023-05-04] MEDS ORDERED: LACTATED RINGER'S 1,000 ML IV ONE ×3 (03:30→05:15)
[2023-05-04] MEDS ORDERED: ONDANSETRON ODT 4 MG TAB PO ONE (03:30)
[2023-05-04] MEDS ORDERED: cefTRIAXone 1GM/50ML D5W 50 ML IV ONE (05:15)
[2023-05-04] MEDS ORDERED: PANTOPRAZOLE 40mg/50ML NS AE 50 ML IV ONE (05:15)
[2023-05-04] MEDS ORDERED: PANTOPRAZOLE 80 MG in SODIUM CHL 0.9% 100 ML IV ONE (05:15)
[2023-05-04] MEDS ORDERED: ONDANSETRON HCL 4 MG/2 ML VIAL IV ONE (05:30)
[2023-05-04] MEDS ORDERED: PANTOPRAZOLE 40 MG/10 ML VIAL INJ IV ONE (06:12)
[2023-05-04 07:31] VITALS: PULSE 113; RESP 18; O2SAT 100
[2023-05-04] MEDS ORDERED: DEXTROSE (50%) 50ML SYRG IV PRN (10:00)
[2023-05-04] MEDS ORDERED: NITROGLYCERIN 0.4 MG SL TAB SL PRN (10:00)
[2023-05-04] MEDS ORDERED: MORPHINE SULFATE INJ 2 MG/ml SYRG IV PRN (10:00)
[2023-05-04] MEDS ORDERED: PROMETHAZINE HCL 25 MG/ML 1ML IV ONE (10:00)
[2023-05-04] MEDS: SODIUM CHLORIDE 0.9% 1,000 ML IV SCH ×2 (10:20→21:14)
[2023-05-04] MEDS: InsuLIN REG 1unit/0.01ml Soln (100units/ml) SC SCH ×3 (12:04→21:22)
[2023-05-04] MEDS: ACCU-CHEK COMFORT CURVE STRIP VI SCH ×3 (12:05→21:23)
[2023-05-04] MEDS: ONDANSETRON HCL 4 MG/2 ML VIAL IV PRN ×2 (12:30→17:48)
[2023-05-04] MEDS: PROMETHAZINE HCL 25 MG/ML 1ML IV PRN (15:52)
[2023-05-04] MEDS ORDERED: ACETAMINOPHEN 325 MG TAB PO ONE ×2 (17:46→18:00)
[2023-05-04 18:32] LABS: Calcium 8.4 mg/dL (8.5-10.1); Potassium 3.4 mmol/L (3.5-5.1)
[2023-05-04 18:35] LABS: Lactic Acid w/Reflex 7.8 mmol/L (0.4-2.0)
[2023-05-04] MEDS ORDERED: SODIUM CHLORIDE 0.9% 1,000 ML IV ONE (19:00)
[2023-05-04 19:25] VITALS: PULSE 130; RESP 30; O2SAT 98
[2023-05-04] MEDS ORDERED: SODIUM CHLORIDE 0.9% 2,000 ML IV ONE (19:30)
[2023-05-04] MEDS: metroNIDAZOLE 500MG/100ML 100 ML IV SCH (21:09)
[2023-05-04] MEDS: PANTOPRAZOLE 40 MG/10 ML VIAL INJ IV SCH (21:26)
[2023-05-04] MEDS ORDERED: PHENYLEPHRINE IV 250 ML IV ONE (21:54)
[2023-05-04] MEDS ORDERED: PIPERACILLIN-TAZOB 3.375GM 100 ML IV SCH (22:00)
[2023-05-04] MEDS: PHENYLEPHRINE IV 250 ML IV SCH (22:00)
[2023-05-04 22:45] VITALS: PULSE 127; RESP 24; O2SAT 98
[2023-05-05] VITALS (75 sets, daily range): BP systolic 86–155; BP diastolic 57–90; PULSE 87–114; RESP 11–35; TEMP 98.6–100.2; O2SAT 87–100
[2023-05-05] MEDS ORDERED: SODIUM CHLORIDE 0.9% 500 ML IV ONE (00:45)
[2023-05-05] MEDS: metroNIDAZOLE 500MG/100ML 100 ML IV SCH ×2 (06:21→14:45)
[2023-05-05] MEDS: ONDANSETRON HCL 4 MG/2 ML VIAL IV PRN ×2 (06:21→21:07)
[2023-05-05] MEDS: SODIUM CHLORIDE 0.9% 1,000 ML IV SCH ×2 (06:43→16:26)
[2023-05-05] MEDS: PHENYLEPHRINE IV 250 ML IV SCH ×3 (07:30→23:00)
[2023-05-05] MEDS: ACCU-CHEK COMFORT CURVE STRIP VI SCH ×4 (07:56→21:38)
[2023-05-05] MEDS: InsuLIN REG 1unit/0.01ml Soln (100units/ml) SC SCH ×4 (07:57→21:38)
[2023-05-05 08:42] LABS: Basophils # (auto) 0 10 ^3/uL (0-0.2); Basophils % (auto) 0.1 % (0.0-2.0); Eosinophils # (auto) 0 10 ^3/uL (0-0.8); Eosinophils % (auto) 0.1 % (0.0-7.0); Hematocrit 30.7 % (36.0-46.0); Lymphocytes # (auto) 1.1 10 ^3/uL (0.4-5.4); Lymphocytes % (auto) 5.1 % (10.0-50.0); Mean Corpuscular Hgb Conc. 32.6 g/dL (32.0-36.0); Mean Corpuscular Volume 89.1 fL (80.0-100.0); Monocytes # (auto) 0.7 10 ^3/uL (0-1.3); Neutrophils # (auto) 19.9 10 ^3/uL (1.6-8.6); Neutrophils % (auto) 91.7 % (37.0-80.0); Nucleated Red Blood Cells % 0.1 %; Red Blood Cells 3.45 10^6/uL (4.0-5.20); Red Cell Distribution Width 13.8 % (11.8-14.3); White Blood Cell 21.7 10^3/uL (4.4-10.8)
[2023-05-05 08:55] LABS: Albumin 2.3 g/dL (3.4-5.0); Calcium 7.2 mg/dL (8.5-10.1)
[2023-05-05 08:58] LABS: BUN/Creatinine Ratio 15.2 (10.0-20.0); Bilirubin, Total 0.4 mg/dL (0.2-1.0); Total Protein 6.3 g/dL (6.4-8.2)
[2023-05-05] MEDS ORDERED: cefTRIAXone 1GM/50ML D5W 50 ML IV SCH ×2 (09:00)
[2023-05-05] MEDS: PANTOPRAZOLE 40 MG/10 ML VIAL INJ IV SCH ×3 (10:00→21:32)
[2023-05-05] MEDS: PROMETHAZINE HCL 25 MG/ML 1ML IV PRN ×3 (10:11→23:19)
[2023-05-05] MEDS ORDERED: SODIUM CHLORIDE 0.9% 1,000 ML IV ONE (14:15)
[2023-05-05] MEDS: SODIUM BICARBONATE 50ML VIAL 75 ML in SOD CHL 0.45% 1,000 ML IV SCH (15:49)
[2023-05-05] MEDS: MEROPENEM 1GM IVPB 100 ML IV SCH (16:26)
[2023-05-05 19:26] LABS: Urine Bacteria MANY /hpf (None Seen); Urine Blood 2+ /uL (Negative); Urine Budding Yeast MANY /hpf (None Seen); Urine Specific Gravity 1.014 (1.001-1.035); Urine WBC 1011 /hpf (0 - 5); Urine WBC Clumps PRESENT /hpf (None Seen)
[2023-05-05 19:41] LABS: Protein, Urine 123.1 mg/dL (0.0-11.9)
[2023-05-06] VITALS (35 sets, daily range): BP systolic 143–180; BP diastolic 66–102; PULSE 80–104; RESP 7–30; TEMP 98.2–99; O2SAT 81–99
[2023-05-06] MEDS: SODIUM BICARBONATE 50ML VIAL 75 ML in SOD CHL 0.45% 1,000 ML IV SCH ×4 (01:15→16:15)
[2023-05-06] MEDS: SODIUM CHLORIDE 0.9% 1,000 ML IV SCH (02:00)
[2023-05-06 04:20] LABS: Basophils # (auto) 0.1 10 ^3/uL (0-0.2); Basophils % (auto) 0.2 % (0.0-2.0); Eosinophils # (auto) 0 10 ^3/uL (0-0.8); Eosinophils % (auto) 0.1 % (0.0-7.0); Hematocrit 31.2 % (36.0-46.0); Hemoglobin 10.3 g/dL (12.2-16.2); Lymphocytes # (auto) 1.1 10 ^3/uL (0.4-5.4); Lymphocytes % (auto) 4.5 % (10.0-50.0); Mean Corpuscular Hemoglobin 29.4 pg (28.0-32.0); Monocytes # (auto) 0.5 10 ^3/uL (0-1.3); Monocytes % (auto) 2.2 % (0.0-12.0); Neutrophils # (auto) 22.2 10 ^3/uL (1.6-8.6); Nucleated Red Blood Cells % 0.1 %; Red Cell Distribution Width 13.6 % (11.8-14.3); White Blood Cell 23.9 10^3/uL (4.4-10.8)
[2023-05-06] MEDS: MEROPENEM 1GM IVPB 100 ML IV SCH ×2 (04:25→15:35)
[2023-05-06 04:54] LABS: Albumin 2.3 g/dL (3.4-5.0); Calcium 6.8 mg/dL (8.5-10.1); Magnesium 1.6 mg/dL (1.6-2.6); Potassium 3.3 mmol/L (3.5-5.1)
[2023-05-06 04:56] LABS: BUN/Creatinine Ratio 16.6 (10.0-20.0)
[2023-05-06 04:59] LABS: Bilirubin, Total 0.4 mg/dL (0.2-1.0); Total Protein 6.6 g/dL (6.4-8.2)
[2023-05-06] MEDS: InsuLIN REG 1unit/0.01ml Soln (100units/ml) SC SCH ×4 (06:26→21:24)
[2023-05-06] MEDS: ACCU-CHEK COMFORT CURVE STRIP VI SCH ×4 (06:26→21:17)
[2023-05-06] MEDS: PHENYLEPHRINE IV 250 ML IV SCH (07:20)
[2023-05-06] MEDS: PANTOPRAZOLE 40 MG/10 ML VIAL INJ IV SCH ×2 (12:42→21:17)
[2023-05-06] MEDS ORDERED: POTASSIUM CHL 20 Meq TABLET PO ONE (13:45)
[2023-05-06] MEDS: ONDANSETRON HCL 4 MG/2 ML VIAL IV PRN (15:30)
[2023-05-06] MEDS: amLODIPine BESYLATE 5 MG TAB PO SCH (18:02)
[2023-05-06] MEDS: PROMETHAZINE HCL 25 MG/ML 1ML IV PRN (18:14)
[2023-05-07] VITALS (10 sets, daily range): BP systolic 132–163; BP diastolic 72–89; PULSE 76–95; RESP 17–20; TEMP 97.1–98.1; O2SAT 94–98
[2023-05-07] MEDS: ONDANSETRON HCL 4 MG/2 ML VIAL IV PRN ×3 (02:26→21:11)
[2023-05-07] MEDS: MEROPENEM 1GM IVPB 100 ML IV SCH ×2 (04:14→15:52)
[2023-05-07] MEDS: PROMETHAZINE HCL 25 MG/ML 1ML IV PRN ×2 (06:32→17:27)
[2023-05-07] MEDS: InsuLIN REG 1unit/0.01ml Soln (100units/ml) SC SCH ×4 (06:48→21:41)
[2023-05-07] MEDS: ACCU-CHEK COMFORT CURVE STRIP VI SCH ×4 (06:48→21:41)
[2023-05-07] MEDS ORDERED: POTASSIUM CHL 20 Meq TABLET PO ONE ×2 (09:00→20:30)
[2023-05-07] MEDS: amLODIPine BESYLATE 5 MG TAB PO SCH (09:07)
[2023-05-07] MEDS: PANTOPRAZOLE 40 MG/10 ML VIAL INJ IV SCH ×2 (09:08→21:13)
[2023-05-07 09:32] LABS: Calcium 7.7 mg/dL (8.5-10.1)
[2023-05-07 09:35] LABS: BUN/Creatinine Ratio 21.7 (10.0-20.0)
[2023-05-07 10:01] LABS: Potassium 2.9 mmol/L (3.5-5.1)
[2023-05-07] MEDS ORDERED: IOTHALAMATE MEGLUMINE INJ 250ML BOT UR ONE (10:05)
[2023-05-07] MEDS: POTASSIUM CHL 20MEQ/100ML 100 ML IV SCH ×2 (13:53→15:58)
[2023-05-07 14:11] LABS: Basophils # (auto) 0 10 ^3/uL (0-0.2); Eosinophils # (auto) 0 10 ^3/uL (0-0.8)
[2023-05-07 14:15] LABS: Basophils % (auto) 0.1 % (0.0-2.0); Eosinophils % (auto) 0.1 % (0.0-7.0); Hematocrit 37.3 % (36.0-46.0); Hemoglobin 11.4 g/dL (12.2-16.2); Lymphocytes # (auto) 1.2 10 ^3/uL (0.4-5.4); Lymphocytes % (auto) 7.1 % (10.0-50.0); Mean Corpuscular Hemoglobin 28.9 pg (28.0-32.0); Mean Corpuscular Hgb Conc. 30.6 g/dL (32.0-36.0); Mean Corpuscular Volume 94.3 fL (80.0-100.0); Monocytes # (auto) 0.6 10 ^3/uL (0-1.3); Monocytes % (auto) 3.3 % (0.0-12.0); Neutrophils # (auto) 15.6 10 ^3/uL (1.6-8.6); Neutrophils % (auto) 89.4 % (37.0-80.0); Nucleated Red Blood Cells % 0.1 %; Red Blood Cells 3.96 10^6/uL (4.0-5.20); Red Cell Distribution Width 14.3 % (11.8-14.3); White Blood Cell 17.5 10^3/uL (4.4-10.8)
[2023-05-07 14:57] LABS: Anion Gap 8 (5-15); BUN/Creatinine Ratio 16.2 (10.0-20.0); Blood Urea Nitrogen 18 mg/dL (7-18); Calcium 7.5 mg/dL (8.5-10.1); Carbon Dioxide 27 mmol/L (21-32); Chloride 101 mmol/L (98-107); GFR African American 66 mL/min; GFR Non-African American 55 mL/min; Glucose 195 mg/dL (74-106); Sodium 136 mmol/L (136-145)
[2023-05-07 14:59] LABS: Potassium 2.8 mmol/L (3.5-5.1)
[2023-05-07] MEDS: hydrALAZINE HCL 20 MG/ML VL IV PRN (17:47)
[2023-05-07 22:27] LABS: BUN/Creatinine Ratio 14.7 (10.0-20.0); Calcium 7.8 mg/dL (8.5-10.1); Magnesium 2.3 mg/dL (1.6-2.6)
[2023-05-07 22:43] LABS: Potassium 2.9 mmol/L (3.5-5.1)
[2023-05-08] VITALS (7 sets, daily range): BP systolic 133–172; BP diastolic 65–99; PULSE 82–103; RESP 17–20; TEMP 97.6–98.4; O2SAT 91–99
[2023-05-08] MEDS ORDERED: POTASSIUM CHL 20 Meq TABLET PO ONE (01:15)
[2023-05-08] MEDS: PROMETHAZINE HCL 25 MG/ML 1ML IV PRN (01:44)
[2023-05-08] MEDS: MEROPENEM 1GM IVPB 100 ML IV SCH (03:43)
[2023-05-08] MEDS: ACCU-CHEK COMFORT CURVE STRIP VI SCH ×4 (06:23→22:12)
[2023-05-08] MEDS: InsuLIN REG 1unit/0.01ml Soln (100units/ml) SC SCH ×4 (06:30→22:13)
[2023-05-08] MEDS: hydrALAZINE HCL 20 MG/ML VL IV PRN ×2 (06:34→09:22)
[2023-05-08 06:44] LABS: Basophils # (auto) 0 10 ^3/uL (0-0.2); Basophils % (auto) 0.2 % (0.0-2.0); Eosinophils # (auto) 0.1 10 ^3/uL (0-0.8); Eosinophils % (auto) 0.4 % (0.0-7.0); Hematocrit 33.8 % (36.0-46.0); Hemoglobin 11.4 g/dL (12.2-16.2); Lymphocytes # (auto) 1.6 10 ^3/uL (0.4-5.4); Mean Corpuscular Hemoglobin 29.2 pg (28.0-32.0); Mean Corpuscular Hgb Conc. 33.6 g/dL (32.0-36.0); Monocytes # (auto) 0.7 10 ^3/uL (0-1.3); Monocytes % (auto) 5.9 % (0.0-12.0); Neutrophils # (auto) 10.2 10 ^3/uL (1.6-8.6); Neutrophils % (auto) 80.5 % (37.0-80.0); Nucleated Red Blood Cells % 0.1 %; Red Blood Cells 3.88 10^6/uL (4.0-5.20); Red Cell Distribution Width 13.3 % (11.8-14.3); White Blood Cell 12.7 10^3/uL (4.4-10.8)
[2023-05-08 07:11] LABS: BUN/Creatinine Ratio 14.7 (10.0-20.0); Calcium 7.9 mg/dL (8.5-10.1); Potassium 3.5 mmol/L (3.5-5.1)
[2023-05-08] MEDS: amLODIPine BESYLATE 5 MG TAB PO SCH (09:21)
[2023-05-08] MEDS: PANTOPRAZOLE 40 MG/10 ML VIAL INJ IV SCH (09:21)
[2023-05-08] MEDS: ONDANSETRON HCL 4 MG/2 ML VIAL IV PRN (12:38)
[2023-05-08] MEDS ORDERED: amLODIPine BESYLATE 5 MG TAB PO ONE (13:15)
[2023-05-08] MEDS ORDERED: AMLO1TAB23 PO (13:25)
[2023-05-08] MEDS ORDERED: MET25T PO (13:25)
[2023-05-08] MEDS ORDERED: PANT40T PO (13:25)
[2023-05-08] MEDS ORDERED: ZOFR4T PO (13:25)
[2023-05-08] MEDS: METOPROLOL TARTRATE 25 MG TAB PO SCH ×2 (13:47→22:12)
[2023-05-08] MEDS: ERTAPENEM SOD INJ 1 GM in SODIUM CHL 0.9% 50 ML IV SCH (13:47)
[2023-05-08] MEDS ORDERED: LIDOCAINE VISCOUS 2% 15ML UD ONE (15:25)
[2023-05-08] MEDS ORDERED: diphenhdrAMINE HCL 50 MG/1 ML VL ONE (15:26)
[2023-05-08] MEDS ORDERED: MIDAZOLAM HCL 5 MG/ML-1ML VIAL ONE (15:26)
[2023-05-08] MEDS ORDERED: fentaNYL CITRATE 100 MCG/2 ML VL ONE (15:26)
[2023-05-08] MEDS ORDERED: fentaNYL CITRATE 100 MCG/2 ML VL IV ONE (15:45)
[2023-05-08] MEDS ORDERED: diphenhdrAMINE HCL 50 MG/1 ML VL IV ONE ×2 (15:45)
[2023-05-08] MEDS ORDERED: MIDAZOLAM HCL 5 MG/ML-1ML VIAL IV ONE (15:45)
[2023-05-08 17:07] LABS: INR 0.93 (0.9-1.15); Partial Thromboplastin Time 24.6 SEC (24.5-34.5)
[2023-05-08] MEDS: PANTOPRAZOLE 40 MG TAB PO SCH (22:12)
[2023-05-09] VITALS (8 sets, daily range): BP systolic 121–164; BP diastolic 70–85; PULSE 60–96; RESP 17–19; TEMP 97.3–98.5; O2SAT 94–98
[2023-05-09] MEDS: ONDANSETRON HCL 4 MG/2 ML VIAL IV PRN (02:33)
[2023-05-09 05:41] LABS: Basophils # (auto) 0 10 ^3/uL (0-0.2); Basophils % (auto) 0.2 % (0.0-2.0); Eosinophils # (auto) 0.1 10 ^3/uL (0-0.8); Eosinophils % (auto) 0.7 % (0.0-7.0); Hematocrit 36.2 % (36.0-46.0); Lymphocytes % (auto) 16.2 % (10.0-50.0); Mean Corpuscular Hemoglobin 28.7 pg (28.0-32.0); Mean Corpuscular Hgb Conc. 33.2 g/dL (32.0-36.0); Mean Corpuscular Volume 86.5 fL (80.0-100.0); Monocytes % (auto) 8.5 % (0.0-12.0); Neutrophils % (auto) 74.4 % (37.0-80.0); Nucleated Red Blood Cells % 0.1 %; Red Blood Cells 4.18 10^6/uL (4.0-5.20); Red Cell Distribution Width 13.2 % (11.8-14.3); White Blood Cell 12.1 10^3/uL (4.4-10.8)
[2023-05-09] MEDS: PROMETHAZINE HCL 25 MG/ML 1ML IV PRN (05:57)
[2023-05-09 06:10] LABS: Potassium 3.1 mmol/L (3.5-5.1)
[2023-05-09] MEDS: ACCU-CHEK COMFORT CURVE STRIP VI SCH ×4 (06:22→20:50)
[2023-05-09] MEDS: InsuLIN REG 1unit/0.01ml Soln (100units/ml) SC SCH ×4 (06:26→21:18)
[2023-05-09] MEDS: PANTOPRAZOLE 40 MG TAB PO SCH ×2 (10:06→21:13)
[2023-05-09] MEDS: amLODIPine BESYLATE 5 MG TAB PO SCH (10:07)
[2023-05-09] MEDS: ERTAPENEM SOD INJ 1 GM in SODIUM CHL 0.9% 50 ML IV SCH (10:07)
[2023-05-09] MEDS: METOPROLOL TARTRATE 25 MG TAB PO SCH ×2 (10:08→21:13)
[2023-05-09] MEDS ORDERED: POTASSIUM CHL 20 Meq TABLET PO ONE (14:30)
[2023-05-09] MEDS ORDERED: SUCR1TAB22 OR (15:00)
[2023-05-09] MEDS: SUCRALFATE 1 GM/10 ML ORAL SUSP PO SCH (16:33)
[2023-05-09] MEDS: POTASSIUM CHL 20MEQ/100ML 100 ML IV SCH ×3 (16:35→19:32)
[2023-05-09] MEDS ORDERED: HYDROcodone-ACET 5/325MG TAB PO PRN (21:45)
[2023-05-10] VITALS (7 sets, daily range): BP systolic 102–134; BP diastolic 59–76; PULSE 80–112; RESP 17–19; TEMP 97.6–98.2; O2SAT 94–95
[2023-05-10 05:59] LABS: Hematocrit 37.2 % (36.0-46.0); Hemoglobin 12.5 g/dL (12.2-16.2); Mean Corpuscular Hemoglobin 29.2 pg (28.0-32.0); Mean Corpuscular Hgb Conc. 33.5 g/dL (32.0-36.0); Mean Corpuscular Volume 87.1 fL (80.0-100.0); Red Blood Cells 4.27 10^6/uL (4.0-5.20); Red Cell Distribution Width 13.2 % (11.8-14.3); White Blood Cell 9.6 10^3/uL (4.4-10.8)
[2023-05-10 06:00] LABS: Calcium 8.2 mg/dL (8.5-10.1); Potassium 3.8 mmol/L (3.5-5.1)
[2023-05-10 06:02] LABS: BUN/Creatinine Ratio 13.6 (10.0-20.0)
[2023-05-10] MEDS: ACCU-CHEK COMFORT CURVE STRIP VI SCH ×4 (06:09→21:54)
[2023-05-10] MEDS: SUCRALFATE 1 GM/10 ML ORAL SUSP PO SCH ×2 (06:09→18:01)
[2023-05-10] MEDS: InsuLIN REG 1unit/0.01ml Soln (100units/ml) SC SCH ×4 (06:12→21:54)
[2023-05-10 06:27] LABS: Basophils % (manual) 0 (0.0-2.0); Blast Cells 0; Eosinophils % (manual) 0 (0-7); Myelocytes % 0; Promyelocytes % 0
[2023-05-10 09:06] LABS: Band Neutrophils % (manual) 8; Lymphocytes % (manual) 32 (10.0-50.0); Metamyelocytes % 3; Monocytes % (manual) 12 (0-12); Reactive Lymphocytes 1
[2023-05-10] MEDS: ERTAPENEM SOD INJ 1 GM in SODIUM CHL 0.9% 50 ML IV SCH (10:43)
[2023-05-10] MEDS: PANTOPRAZOLE 40 MG TAB PO SCH ×2 (10:43→21:50)
[2023-05-10] MEDS: amLODIPine BESYLATE 5 MG TAB PO SCH (10:44)
[2023-05-10] MEDS: METOPROLOL TARTRATE 25 MG TAB PO SCH ×2 (10:44→21:51)
[2023-05-11 05:00] VITALS: BP 108/67; PULSE 97; RESP 17; TEMP 98; O2SAT 97
[2023-05-11] MEDS: ACCU-CHEK COMFORT CURVE STRIP VI SCH ×3 (06:02→17:49)
[2023-05-11] MEDS: SUCRALFATE 1 GM/10 ML ORAL SUSP PO SCH ×2 (06:02→17:00)
[2023-05-11] MEDS: InsuLIN REG 1unit/0.01ml Soln (100units/ml) SC SCH ×3 (06:05→17:00)
[2023-05-11 08:00] VITALS: PULSE 91; PULSE 95; RESP 18
[2023-05-11 09:00] VITALS: BP 108/66; PULSE 95; RESP 18; TEMP 98.1; O2SAT 94
[2023-05-11] MEDS: ERTAPENEM SOD INJ 1 GM in SODIUM CHL 0.9% 50 ML IV SCH (09:03)
[2023-05-11] MEDS: PANTOPRAZOLE 40 MG TAB PO SCH (09:03)
[2023-05-11] MEDS: amLODIPine BESYLATE 5 MG TAB PO SCH (09:09)
[2023-05-11] MEDS: METOPROLOL TARTRATE 25 MG TAB PO SCH (09:10)
[2023-05-11 13:00] VITALS: BP 110/68; PULSE 87; RESP 20; TEMP 98.1; O2SAT 95
[2023-05-11 16:46] VITALS: BP 108/62; PULSE 102; RESP 18; TEMP 98; O2SAT 95
[2023-05-11 17:26] VITALS: BP 110/68; PULSE 87; TEMP 36.7
== END 2023-05-11 18:20 | disposition home health service (06) | DRG 720 ==
LOC: ER 22:54 → TELE 05-04 09:58 → ICU WEST 05-05 03:34 → TELE-WESTW 05-06 09:57
PROVIDERS: ADMIT Nurse Practitioner Family; ATTEND Internal Medicine
PROC: 05HC33Z Insertion of Infusion Device into Left Basilic Vein, Percutaneous Approach (ICD-10-PCS; 2023-05-07)
PROC: B54NZZA Ultrasonography of Left Upper Extremity Veins, Guidance (ICD-10-PCS; 2023-05-07)
PROC: 0DB68ZX Excision of Stomach, Via Natural or Artificial Opening Endoscopic, Diagnostic (ICD-10-PCS; 2023-05-08)
PROC: 0DB98ZX Excision of Duodenum, Via Natural or Artificial Opening Endoscopic, Diagnostic (ICD-10-PCS; principal; 2023-05-08 15:40)
DX: A41.51 Sepsis due to Escherichia coli [E. coli] (principal); N17.0 Acute kidney failure with tubular necrosis; R65.21 Severe sepsis with septic shock; E44.0 Moderate protein-calorie malnutrition; E87.20 Acidosis, unspecified; N13.6 Pyonephrosis; E11.22 Type 2 diabetes mellitus with diabetic chronic kidney disease; E11.65 Type 2 diabetes mellitus with hyperglycemia; N18.30 Chronic kidney disease, stage 3 unspecified; E86.1 Hypovolemia; E87.6 Hypokalemia; K76.0 Fatty (change of) liver, not elsewhere classified; N32.3 Diverticulum of bladder; I12.9 Hypertensive chronic kidney disease with stage 1 through stage 4 chronic kidney disease, or unspecified chronic kidney disease; K31.9 Disease of stomach and duodenum, unspecified; K44.9 Diaphragmatic hernia without obstruction or gangrene; E86.0 Dehydration; Z16.12 Extended spectrum beta lactamase (ESBL) resistance; K21.9 Gastro-esophageal reflux disease without esophagitis; Z78.9 Other specified health status; Z79.4 Long term (current) use of insulin; Z83.3 Family history of diabetes mellitus; Z91.199 Patient's noncompliance with other medical treatment and regimen due to unspecified reason; Z68.29 Body mass index [BMI] 29.0-29.9, adult; Z87.19 Personal history of other diseases of the digestive system; Z87.442 Personal history of urinary calculi; Z90.49 Acquired absence of other specified parts of digestive tract; Z91.148 Patient's other noncompliance with medication regimen for other reason; K29.70 Gastritis, unspecified, without bleeding; K29.80 Duodenitis without bleeding
CPT/HCPCS: 36415; 36600; 43239; 51702; 72192; 74176; 76775; 80048; 80053; 81001; 82270; 82570; 82805; 82962; 83036; 83605; 83690; 83735; 84156; 84300; 84484; 85007; 85025; 85027; 85610; 85730; 86803; 87040; 87077; 87081; 87086; 87088; 87186; 93005; 96361; 96365; 96366; 96368; 96375; C9113; G0378; J0696; J1335; J1815; J2185; J2250; J2405; J3480; J3490; J7042; Q0162

== ENCOUNTER 2024-06-05 01:26 | Emergency (ER) | payer MEDICAID ==
[~2024-06-05] VITALS: Ht 149.9 cm; Wt 59.1 kg
[~2024-06-05 01:26] MED LIST: AMLO1TAB23 PO; MET25T PO; PANT40T PO; SUCR1TAB31 OR; ZOFR4T PO
[2024-06-05 01:46] VITALS: BP 104/88; PULSE 114; RESP 16; TEMP 98.3; O2SAT 99
[2024-06-05] MEDS: KETOROLAC TROMETH 60MG/2ML VIAL IM ONE (02:55)
== END 2024-06-05 03:50 | disposition home or self-care (01) ==
LOC: ER 01:26
DX: S60.221A Contusion of right hand, initial encounter (principal); S00.33XA Contusion of nose, initial encounter; E11.9 Type 2 diabetes mellitus without complications; Z98.890 Other specified postprocedural states; Z79.899 Other long term (current) drug therapy; Y04.2XXA Assault by strike against or bumped into by another person, initial encounter; Y93.89 Activity, other specified; Y92.89 Other specified places as the place of occurrence of the external cause; Y99.8 Other external cause status
CPT/HCPCS: 73130; 96372; 99283; J1885

== ENCOUNTER 2025-07-25 14:38 | Emergency (ER) | payer MEDICAID, OTHER ==
[~2025-07-25] VITALS: Ht 165.1 cm; Wt 77.0 kg
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
[2025-07-25] MEDS: HYDROcodone-ACET 5/325MG TAB PO ONE (17:22)
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
[2025-07-25 18:37] VITALS: BP 148/68; PULSE 78; RESP 17; TEMP 98.7; O2SAT 97
== END 2025-07-25 18:40 | disposition home or self-care (01) ==
LOC: EDUNIT# 14:38 → ER 14:38 → EDBD 14:38 → ER 18:40
DX: T14.8XXA Other injury of unspecified body region, initial encounter (principal); E11.9 Type 2 diabetes mellitus without complications; R42 Dizziness and giddiness; Z79.899 Other long term (current) drug therapy; Y09 Assault by unspecified means; Y93.89 Activity, other specified; Y92.89 Other specified places as the place of occurrence of the external cause; Y99.8 Other external cause status
CPT/HCPCS: 70450; 71045; 72170; 73090